=== PATIENT | female | born 1995 | race Two or more races ===

== ENCOUNTER 2018-04-09 15:37 | Emergency (ER) | payer OTHER ==
[~2018-04-09] VITALS: Ht 157.5 cm; Wt 72.6 kg
[2018-04-09 15:50] VITALS: BP 114/76
--- NOTE | 2018-04-09 15:58 | Emergency Room Report ---
History of Present Illness General Chief Complaint: Upper Respiratory Illness Source: Patient Present Illness HPI Patient is a 23-year-old female presents after increased cough and congestion. Patient reports having increased nonproductive cough associated with some nasal congestion. She reports having a mild sore throat. She denies any vomiting. Patient states that she had been sick approximately 2 weeks ago and had again having increased congestion and chills. Patient denies any dizziness or lightheadedness. Allergies: Coded Allergies: No Known Allergies (Unverified , 04/09/18) Patient History Past Medical History: see triage record Last Menstrual Period: 02/2018 Now: No Reviewed Nursing Documentation: PMH: Agreed; PSxH: Agreed Nursing Documentation-PMH Past Medical History: No Stated History Review of Systems All Other Systems: negative except mentioned in HPI Physical Exam Vital Signs Date Time Temp Pulse Resp B/P (MAP) Pulse Ox O2 Delivery O2 Flow Rate FiO2 04/09/18 15:45 99.0 88 20 117/75 98 Room Air General Appearance: well appearing, no apparent distress, obese Head: normocephalic, atraumatic ENT: hearing grossly normal, normal voice, tonsillar swelling, other - no tonsillar exudate Neck: full range of motion, supple Respiratory: lungs clear, normal breath sounds, no respiratory distress, speaking full sentences Cardiovascular #1: normal peripheral pulses, regular rate, rhythm, no edema Gastrointestinal: normal inspection Musculoskeletal: no calf tenderness Neurologic: normal inspection, alert, oriented x3, responsive, normal gait Psychiatric: mood/affect normal Skin: normal inspection, no rash Medical Decision Making Diagnostic Impression: Primary Impression: Acute viral syndrome ER Course Patient presented for sore throat. Differential diagnosis included but was not limited to influenza , meningitis, exudative tonsillitis, retropharyngeal abscess, epiglottitis, strep pharyngitis. Patient has a benign exam and does not appear to require any further imaging or laboratory testing at this time. Influenza was noted to be negative. Patient appears to have a viral upper respiratory infection. The patient is advised to follow up with primary care doctor in 1-2 days. Patient is advised to return if any worsening condition or if any changes in status that are concerning. This report is dictated with Direct Access Software supervisory investigative specialist software which may occasionally lead to discrepancies related to use of this software. Labs Test 04/09/18 16:45 Urine Color Pale yellow Urine Appearance Clear Urine pH 7 (4.5-8.0) Urine Specific [place] 1.005 (1.005-1.035) Urine Protein Negative (NEGATIVE) Urine Glucose (UA) Negative (NEGATIVE) Urine Ketones Negative (NEGATIVE) Urine Blood Negative (NEGATIVE) Urine Nitrite Negative (NEGATIVE) Urine Bilirubin Negative (NEGATIVE) Urine Urobilinogen Normal MG/DL (0.0-1.0) Urine Leukocyte Esterase 2+ (NEGATIVE) Urine RBC 0-2 /HPF (0 - 2) Urine WBC 2-4 /HPF (0 - 2) Urine Squamous Epithelial Cells Few /LPF (NONE/OCC) Urine Bacteria Few /HPF (NONE) Urine HCG, Qualitative Negative (NEGATIVE) Last Vital Signs Date Time Temp Pulse Resp B/P (MAP) Pulse Ox O2 Delivery O2 Flow Rate FiO2 04/09/18 15:45 99.0 88 20 117/75 98 Room Air Status: improved Disposition: HOME, SELF-CARE Condition: Stable Scripts Guaifenesin* (ADULT WAL-TUSSIN*) 100 Mg/5 Ml Liquid 10 ML ORAL Q4H, #120 ML Prov: Fei Mukherjee MD 04/09/18 Naproxen* (NAPROXEN*) 375 Mg Tablet. 375 MG ORAL TWICE A DAY, #14 TAB Prov: Fei Mukherjee MD 04/09/18 Fei Mukherjee MD Apr 09, 2018 15:58
[2018-04-09] MEDS ORDERED: ADULT WAL-100 MG/5 M ORAL (17:00)
[2018-04-09] MEDS ORDERED: NAPROXEN375 M2 ORAL (17:00)
[2018-04-09 17:04] LABS: APPEARANCE,URINE CLEAR; BILIRUBIN, URINE NEGATIVE (NEGATIVE); COLOR,URINE PALE YELLOW; GLUCOSE, URINE (UA) NEGATIVE (NEGATIVE); KETONES,URINE NEGATIVE (NEGATIVE); LEUKOCYTE ESTERASE ,URINE 2+ (NEGATIVE); NITRITE,URINE NEGATIVE (NEGATIVE); PH,URINE 7 (4.5-8.0); PROTEIN,URINE NEGATIVE (NEGATIVE); UROBILINOGEN,URINE NORMAL MG/DL (0.0-1.0)
[2018-04-09 17:32] VITALS: BP 117/78
== END 2018-04-09 17:34 | disposition home or self-care (01) ==
LOC: EMR 16:10
DX: J06.9 Acute upper respiratory infection, unspecified (principal); B34.9 Viral infection, unspecified
CPT/HCPCS: 81003; 81025; 86710; 99283

== ENCOUNTER 2018-08-26 15:06 | Emergency (ER) | payer OTHER ==
[~2018-08-26] VITALS: Ht 157.5 cm; Wt 68.0 kg
[~2018-08-26 15:06] MED LIST: ADULT WAL-100 MG/5 M ORAL; NAPROXEN375 M2 ORAL
[2018-08-26 15:41] VITALS: BP 113/71
--- NOTE | 2018-08-26 15:45 | NUR ---
ED Nurse Note: Patient walked in to ER c/o flu like symptom including coughing with white mucus for 3 days. pt aao x4 and ambulatory with steady gait. skin clean and intact. pt denied pain.
--- NOTE | 2018-08-26 15:47 | Emergency Room Report ---
History of Present Illness General Chief Complaint: Upper Respiratory Illness Source: Patient Present Illness HPI 23-year-old female presents to the emergency department complaining of persistent productive cough 3 days. Patient denies fevers or chills she reports she had a sore throat on the first day but that resolved. Patient denies pain at this time she reports some nasal congestion and rhinorrhea as well as some intermittent bodyaches. Patient denies recent travel or ill contacts with similar symptoms. Denies ear pain, high fevers, lethargy, neck pain/stiffness, irritability, photophobia dehydration, N/V/D. Denies Cp, Palpitations, LOC, AMS, seizures, paresthesias, or changes in Hearing or vision , no Sudden severe MCKENNA. Denies hx of smoking, asthma or COPD. Allergies: Coded Allergies: No Known Allergies (Unverified , 04/09/18) Patient History Past Medical History: see triage record Past Surgical History: none Pertinent Family History: none Last Menstrual Period: 08/07/2018 Now: No Reviewed Nursing Documentation: PMH: Agreed; PSxH: Agreed Nursing Documentation-PMH Past Medical History: No Stated History Review of Systems All Other Systems: negative except mentioned in HPI Physical Exam Vital Signs Date Time Temp Pulse Resp B/P (MAP) Pulse Ox O2 Delivery O2 Flow Rate FiO2 08/26/18 15:21 98.8 86 20 97 Room Air Sp02 EP Interpretation: reviewed, normal General Appearance: no apparent distress, alert, GCS 15, non-toxic Head: normocephalic, atraumatic Eyes: bilateral eye normal inspection, bilateral eye PERRL ENT: hearing grossly normal, normal voice Neck: full range of motion Respiratory: lungs clear, normal breath sounds, speaking full sentences Cardiovascular #1: regular rate, rhythm, no edema Musculoskeletal: back normal, gait/station normal, normal range of motion, non- tender Neurologic: alert, oriented x3, responsive, motor strength/tone normal, sensory intact, speech normal, grossly normal Psychiatric: judgement/insight normal Skin: normal color, no rash, warm/dry, well hydrated Lymphatic: no adenopathy Medical Decision Making PA Attestation Dr. Mukherjee is my supervising Physician whom patient management has been discussed with. Diagnostic Impression: Primary Impression: Upper respiratory infection Qualified Codes: J06.9 - Acute upper respiratory infection, unspecified ER Course 23-year-old female presents to the emergency department complaining of persistent productive cough 3 days. Patient denies fevers or chills she reports she had a sore throat on the first day but that resolved. Patient denies pain at this time she reports some nasal congestion and rhinorrhea as well as some intermittent body aches. Patient denies recent travel or ill contacts with similar symptoms. Denies ear pain, high fevers, lethargy, neck pain/stiffness, irritability, photophobia dehydration, N/V/D. Denies Cp, Palpitations, LOC, AMS, seizures, paresthesias, or changes in Hearing or vision , no Sudden severe MCKENNA. Denies hx of smoking, asthma or COPD. Ddx considered but are not limited to URI, pneumonia, PE, strep pharyngitis, meningitis. Vital signs: Pt. is afebrile, the remaining VS are WNL H&PE are most consistent with URI- no meningeal signs, oropharynx is not involved, no evidence of bacterial infection at this time. ORDERS: none required at this time, the diagnosis is clinical ED INTERVENTIONS: None required at this time. --PT. EDUCATION: Discussed antibiotic resistance with inappropriate prescribing of antibiotics for viral illnesses. Discussed signs and symptoms to indicate viral illness versus bacterial illness. DISCHARGE: At this time pt. is stable for d/c to home. Will provide printed patient care instructions, and any necessary prescriptions. Care plan and follow up instructions have been discussed with the patient prior to discharge. Last Vital Signs Date Time Temp Pulse Resp B/P (MAP) Pulse Ox O2 Delivery O2 Flow Rate FiO2 08/26/18 15:21 98.8 86 20 97 Room Air Disposition: HOME, SELF-CARE Condition: Stable Referrals: [facility],REFERRING (PCP) Departure Forms: Return to Work Return to Work Date: August 27, 2018 Work Restrictions: None Other Restrictions: Symptoms began 08/23 Return to Full Activity: August 27, 2018 Patient Instructions: Upper Respiratory Infection, Adult Additional Instructions: Take medications as directed. Follow up with a Primary Care Provider in 3-5 days, even if your symptoms have resolved. --Please review list of primary care clinics, if you do not already have a primary care provider Return sooner to ED if new symptoms occur, or current symptoms become worse. Do not drink alcohol, drive, or operate heavy machinery while taking Cough Syrup as this may cause drowsiness. - Please note that this Emergency Department Report was dictated using Built Insupervisor type photography technology software, occasionally this can lead to erroneous entry secondary to interpretation by the dictation equipment. Court Parker August 26, 2018 15:47
[2018-08-26] MEDS ORDERED: PROMETHAZINE-C118 M1 ORAL (15:49)
[2018-08-26] MEDS ORDERED: GUAIFENESIN1200 MG PO (15:49)
[2018-08-26 15:50] VITALS: BP 122/86
--- NOTE | 2018-08-26 16:19 | NUR ---
ER DISCHARGE NOTE: Patient is cleared to be discharged per ERPA, pt is aox4, on room air, with stable vital signs. pt was given dc and prescription instructions, pt was able to verbalize understanding, pt id band removed. pt is able to ambulate with steady gait. pt took all belongings.
== END 2018-08-26 15:50 | disposition home or self-care (01) ==
LOC: EMR 15:30
DX: J06.9 Acute upper respiratory infection, unspecified (principal)
CPT/HCPCS: 99282